=== PATIENT | male | born 1945 | race Caucasian/White ===

== ENCOUNTER 2019-09-09 16:30 | Outpatient (RCR) | payer MEDICARE, OTHER, SELFPAY ==
[2019-06-11 09:54] VITALS: PULSE 72
== END 2019-09-09 23:59 | disposition home or self-care (01) ==
LOC: ANHCPREHAB 16:30
PROVIDERS: PCP Family Medicine; Visit Provider Nurse Practitioner Adult Health
DX: I50.89 Other heart failure (principal)
CPT/HCPCS: 93798

== ENCOUNTER 2019-09-19 16:30 | Outpatient (RCR) | payer MEDICARE, OTHER, SELFPAY ==
[2019-09-10 00:07] VITALS: PULSE 72
== END 2019-09-19 18:43 | disposition home or self-care (01) ==
LOC: ANHCPREHAB 16:30
PROVIDERS: PCP Family Medicine; Visit Provider Nurse Practitioner Adult Health
DX: I50.89 Other heart failure (principal)
CPT/HCPCS: 93798

== ENCOUNTER 2020-09-12 09:10 | Outpatient (CLI) | payer MEDICARE, OTHER, SELFPAY ==
--- NOTE | ~2020-09-12 | CT_ITS ---
EXAMINATION: CT abdomen pelvis w con INDICATION: Unspecified abdominal pain TECHNIQUE: Computed tomographic images of the abdomen and pelvis were obtained after the administrati on of 100 cc of Omnipaque 350 intravenous contrast. The dose-length product (DLP) was 874.61 mGy-cm. Automated exposure control and iterative reconstruction technique were employed. COMPARISON: 10/20/2011 FINDINGS: Minimal dependent atelectasis is present in the lung bases. The heart size is normal. Cysts of the liver measure up to 1.9 cm. The spleen, pancreas, and adrenal glands are normal. The gallblad osmar is surgically absent. Cysts of the kidneys measure up to 2.8 cm on the left. There are large james pelvic cysts on the left. A 1.3 cm intermediate attenuation exophytic lesion is present in the left k idney lower pole on image 78 which is essentially unchanged in size since the 2012 comparison, likely reflecting a proteinaceous cyst. No pathologically enlarged abdominal or pelvic lymph nodes are iden tified. There is calcified atherosclerosis of the aorta and many of the other arteries. There is no f ree intraperitoneal gas or evidence of bowel obstruction. Colonic diverticulosis is present without e vidence of diverticulitis. There are fat-containing inguinal hernias. There is moderate lumbar spondy losis. IMPRESSION: 1. Bilateral inguinal hernias containing fat. 2. Diverticulosis without evidence of diverticulitis. Reviewed, dictated and finalized at location A. [employer]
[2020-09-12 09:54] LABS: Estimated Glomerular Filt Rate > 60
== END 2020-09-12 09:11 | disposition home or self-care (01) ==
PROVIDERS: PCP Family Medicine; Visit Provider Family Medicine
DX: R10.9 Unspecified abdominal pain (principal); K40.20 Bilateral inguinal hernia, without obstruction or gangrene, not specified as recurrent; K57.90 Diverticulosis of intestine, part unspecified, without perforation or abscess without bleeding
CPT/HCPCS: 74177; Q9967

== ENCOUNTER 2022-02-14 13:35 | Emergency (ER) | payer MEDICARE, OTHER, SELFPAY ==
[2022-02-14 13:50] VITALS: BP 145/69; PULSE 65; RESP 18; TEMP 36.6; O2SAT 100
--- NOTE | 2022-02-14 14:20 | ED.URI ---
HPI - URI/Sore Throat General Chief Complaint: Upper Respiratory Infection Stated Complaint: cough Time Seen by Provider: 02/14/22 14:06 Source: patient Mode of arrival: ambulatory Limitations: no limitations History of Present Illness HPI Narrative: Patient presents today with a 2-day history of productive cough that is worse at night, nasal congestion, postnasal drip, sore throat at night. Denies fever shortness of breath. He has been using Flonase, antihistamine, and Singulair without much relief. Reports he gets bronchitis once a year. Related Data Home Medications Medication Instructions Recorded Confirmed aspirin 81 mg tablet,delayed 81 mg PO DAILY 06/11/19 02/14/22 release (Aspir-Low) glucosamine sulfate dipotassium Cl 2 tablet PO DAILY 06/11/19 02/14/22 500 mg-chondroitin 400 mg capsule (Glucosamine Sulfate 2 KCL-Chondroitin) multivit with minerals-iron 18 1 tablet PO DAILY 06/11/19 02/14/22 mg-folic ac 400 mcg-vit K 25 mcg tablet (Adults Multivitamin) sacubitril 49 mg-valsartan 51 mg 1 tablet PO BID 12/15/20 12/07/21 tablet (Entresto) fluticasone propionate 50 1 spray intranasal DAILY 02/14/22 02/14/22 mcg/actuation nasal spray,suspension sacubitril 49 mg-valsartan 51 mg 1 tablet PO BID 02/14/22 02/14/22 tablet (Entresto) Allergies Allergy/AdvReac Type Severity Reaction Status Date / Time metronidazole Allergy Mild Unknown Verified 02/14/22 13:55 Penicillins Allergy Mild Hives / Verified 02/14/22 13:55 Red Face Sulfa (Sulfonamide Allergy Mild Unknown Verified 02/14/22 13:55 Antibiotics) Review of Systems Review of Systems: CONSTITUTIONAL: Denies body aches, fever, chills, or sweats. EYES: Denies visual changes, redness, or discharge. ENT: Denies rhinorrhea, or otalgia.+ Sore throat, congestion CARDIOVASCULAR: Denies chest pain, palpitations, or edema. RESPIRATORY: Denies dyspnea.+ Cough GASTROINTESTINAL: Denies abdominal pain, nausea, vomiting, or diarrhea. GENITOURINARY: Denies dysuria or hematuria. SKIN: Denies rash, itching, or wounds. MUSCULOSKELETAL: Denies back pain, joint pain, or myalgia. NEUROLOGIC: Denies headache, numbness, tingling, or weakness. PSYCH: Denies depression or anxiety. [facility] Past Medical History Medical History Cardiomyopathy Cyst of kidney, acquired Diverticulosis of colon (without mention of hemorrhage) LBBB (left bundle branch block) Myocardial infarction, anteroseptal Other obesity due to excess calories Urge incontinence Viral cardiomyopathy Surgical History Surgical History Hx of cholecystectomy Family History Family History Father Family history of cardiovascular disease, Onset Age: 82 Mother Family history of cardiovascular disease Social History Social History Smoking packs per day: 0.5 Smoking cigarettes per day: 10.0 Years smoked: 8 Smoking pack-years: 4.00 Smoking status: Never smoker Tobacco type: cigarettes Second hand tobacco smoke exposure: No Alcohol intake: never Comments At time of signature, I have reviewed and agree with nursing past medical, surgical, social and family history unless otherwise noted. Please see nursing chart for further information. There is no relevant family history pertinent to the presenting complaint Exam Narrative: GENERAL: Well-appearing, well-nourished, and in no acute distress. HEAD: Normocephalic, atraumatic. EYES: EOMI. No redness or drainage. Conjunctivae normal. ENT: Mucous membranes pink and moist. Nares clear. No rhinorrhea. TMs normal bilaterally. Throat normal. Uvula midline. NECK: Normal AROM. Supple. No lymphadenopathy. CHEST: No respiratory distress. Clear to auscultation. HEART: Re
== END 2022-02-14 14:41 | disposition home or self-care (01) ==
PROVIDERS: Emergency Provider Nurse Practitioner; PCP Physician Assistant
DX: J06.9 Acute upper respiratory infection, unspecified (principal); J40 Bronchitis, not specified as acute or chronic; F17.210 Nicotine dependence, cigarettes, uncomplicated; I42.9 Cardiomyopathy, unspecified; I25.2 Old myocardial infarction; Z79.01 Long term (current) use of anticoagulants
CPT/HCPCS: 99213; G0463

== ENCOUNTER 2022-02-23 15:26 | Outpatient (CLI) | payer MEDICARE, OTHER, SELFPAY ==
--- NOTE | ~2022-02-23 | XR_ITS ---
EXAMINATION: XR chest 2V 02/23/2022 15:45 INDICATION: Bronchitis PROCEDURE: 2 view chest COMPARISON: Comparison to multiple prior studies sequentially, with oldest reviewed study dated 04/24. FINDINGS: The lungs are clear. The cardiomediastinal silhouette is within normal limits. There are no pleural effusions. There is no pneumothorax suspected. IMPRESSION: 1: NO ACUTE CARDIOPULMONARY DISEASE. Reviewed, dictated and finalized at location A.
== END 2022-02-23 15:27 | disposition home or self-care (01) ==
LOC: ANHIMG 15:29
PROVIDERS: PCP Physician Assistant; Visit Provider Physician Assistant
DX: R05.9 Cough, unspecified (principal)
CPT/HCPCS: 71046

== ENCOUNTER 2022-03-11 11:04 | Emergency (ER) | payer MEDICARE, OTHER, SELFPAY ==
--- NOTE | ~2022-03-11 | XR_ITS ---
EXAMINATION: XR chest 2V 03/11/2022 11:28 INDICATION: Cough PROCEDURE: 2 view chest COMPARISON: Comparison to multiple prior studies sequentially, with oldest reviewed study dated 01/2009. FINDINGS: The lungs are clear. The cardiomediastinal silhouette is within normal limits. There are no pleural effusions. There is no pneumothorax suspected. IMPRESSION: 1: NO ACUTE CARDIOPULMONARY DISEASE. Reviewed, dictated and finalized at location B.
[2022-03-11 11:13] VITALS: BP 161/80; PULSE 81; RESP 16; TEMP 36.6; O2SAT 98
--- NOTE | 2022-03-11 11:15 | ED.URI ---
HPI - URI/Sore Throat General Chief Complaint: Upper Respiratory Infection Stated Complaint: COUGH/CONGESTION Time Seen by Provider: 03/11/22 11:20 Source: patient Mode of arrival: ambulatory Limitations: no limitations History of Present Illness HPI Narrative: Mr. Rodriguez is a 76-year-old male patient presenting to the clinic today with complaints of a cough, chest congestion, and head congestion. He reports that he is bringing up some yellow phlegm when he coughs. He reports that he had the same episode approximately 3 weeks ago and was seen and was given a steroid and a Z-Jose Martin and that cleared him up however the last 4 days he developed the symptoms. He denies any fever or chills. He denies any known COVID exposure. States he gets this every year due to allergies/seasonal. He is a non-smoker. Reports he is going on a cruise next week. MD elicited complaint: sore throat and nasal congestion Related Data Home Medications Medication Instructions Recorded Confirmed aspirin 81 mg tablet,delayed 81 mg PO DAILY 06/11/19 02/14/22 release (Aspir-Low) glucosamine sulfate dipotassium Cl 2 tablet PO DAILY 06/11/19 02/14/22 500 mg-chondroitin 400 mg capsule (Glucosamine Sulfate 2 KCL-Chondroitin) multivit with minerals-iron 18 1 tablet PO DAILY 06/11/19 02/14/22 mg-folic ac 400 mcg-vit K 25 mcg tablet (Adults Multivitamin) sacubitril 49 mg-valsartan 51 mg 1 tablet PO BID 12/15/20 12/07/21 tablet (Entresto) fluticasone propionate 50 1 spray intranasal DAILY 02/14/22 02/14/22 mcg/actuation nasal spray,suspension sacubitril 49 mg-valsartan 51 mg 1 tablet PO BID 02/14/22 02/14/22 tablet (Entresto) Allergies Allergy/AdvReac Type Severity Reaction Status Date / Time metronidazole Allergy Mild Unknown Verified 02/14/22 13:55 Penicillins Allergy Mild Hives / Verified 02/14/22 13:55 Red Face Sulfa (Sulfonamide Allergy Mild Unknown Verified 02/14/22 13:55 Antibiotics) Review of Systems Review of Systems: Pertinent positives per HPI. Patient denies any fever, chills, rash, headache, visual changes, dizziness, shortness of breath, chest pain, palpitations, nausea, vomiting, diarrhea, constipation, abdominal pain, or any urinary issues. [facility] Past Medical History Medical History Cardiomyopathy Cyst of kidney, acquired Diverticulosis of colon (without mention of hemorrhage) LBBB (left bundle branch block) Myocardial infarction, anteroseptal Other obesity due to excess calories Urge incontinence Viral cardiomyopathy Surgical History Surgical History Hx of cholecystectomy Family History Family History Father Family history of cardiovascular disease, Onset Age: 82 Mother Family history of cardiovascular disease Social History Social History Smoking packs per day: 0.5 Smoking cigarettes per day: 10.0 Years smoked: 8 Smoking pack-years: 4.00 Smoking status: Never smoker Tobacco type: cigarettes Second hand tobacco smoke exposure: No Alcohol intake: never Comments At the time of my signature, I reviewed and agree with the nursing past medical, surgical, social, and family history. There is no relevant family history pertinent to the patient complaint. Exam Narrative: General: Well-developed, overweight, in no apparent distress Head: Normocephalic, atraumatic Eyes: Pupils equally round and reactive to light bilaterally, EOM intact, sclera and conjunctive clear, no discharge, lids normal Ears: TMs intact and clear, ear canals clear, no drainage, grossly hearing normal. Nose: Nares patent, no discharge, no inflammation, no sinus tenderness. Mouth: Oral pharynx without lesions or masses, good dentition, MMM. Neck:
== END 2022-03-11 12:09 | disposition home or self-care (01) ==
PROVIDERS: Emergency Provider Nurse Practitioner Family; PCP Physician Assistant
DX: J40 Bronchitis, not specified as acute or chronic (principal); I42.9 Cardiomyopathy, unspecified; I25.2 Old myocardial infarction; E66.8 Other obesity; Z68.30 Body mass index [BMI] 30.0-30.9, adult
CPT/HCPCS: 71046; 99213; G0463

== ENCOUNTER 2022-10-20 14:41 | Emergency (ER) | payer MEDICARE, OTHER, SELFPAY ==
[2022-10-20 14:54] VITALS: BP 151/82; PULSE 66; RESP 16; TEMP 36.1; O2SAT 99
--- NOTE | 2022-10-20 15:08 | ED.SKABFB ---
HPI - Skin/Abscess/Foreign Bdy General Chief complaint: Skin/Abscess/Foreign Body Stated complaint: INFECTED INGROWN TOENAIL Source: patient and RN notes reviewed History of Present Illness HPI narrative: 77 yo M presents to urgent care with complaints of an ingrown toenail. Pt presents with right big toenail tender to the medial side and slightly edematous and erythematous. Pt states he noticed drainage from the toenail when he applied pressure to the nail. Denies any other symptoms including fevers or chills. Related Data Home Medications Medication Instructions Recorded Confirmed aspirin 81 mg tablet,delayed 81 mg PO DAILY 06/11/19 10/20/22 release (Aspir-Low) glucosamine sulfate dipotassium Cl 2 tablet PO DAILY 06/11/19 10/20/22 500 mg-chondroitin 400 mg capsule (Glucosamine Sulfate 2 KCL-Chondroitin) multivit with minerals-iron 18 1 tablet PO DAILY 06/11/19 10/20/22 mg-folic ac 400 mcg-vit K 25 mcg tablet (Adults Multivitamin) fluticasone propionate 50 1 spray intranasal DAILY 02/14/22 10/20/22 mcg/actuation nasal spray,suspension sacubitril 49 mg-valsartan 51 mg 1 tablet PO BID 02/14/22 10/20/22 tablet (Entresto) Allergies Allergy/AdvReac Type Severity Reaction Status Date / Time metronidazole Allergy Mild Unknown Verified 10/20/22 14:52 Penicillins Allergy Mild Hives / Verified 10/20/22 14:52 Red Face Sulfa (Sulfonamide Allergy Mild Unknown Verified 10/20/22 14:52 Antibiotics) Review of Systems Review of Systems: CONSTITUTIONAL: Denies fever, chills, or sweats. EYES: Denies visual changes, redness, or discharge. ENT: Denies otalgia and sore throat CARDIOVASCULAR: Denies chest pain, palpitations, or edema. RESPIRATORY: Denies cough or dyspnea. GASTROINTESTINAL: Denies abdominal pain, nausea, vomiting, or diarrhea. GENITOURINARY: Denies dysuria or hematuria. SKIN: Right big toenail pain and swelling. MUSCULOSKELETAL: Denies back pain, joint pain, or myalgia. NEUROLOGIC: Denies headache, numbness, or weakness. Pertinent positives per HPI. [facility] Past Medical History Medical History Cardiomyopathy Cyst of kidney, acquired Diverticulosis of colon (without mention of hemorrhage) LBBB (left bundle branch block) Myocardial infarction, anteroseptal Other obesity due to excess calories Urge incontinence Viral cardiomyopathy Surgical History Surgical History Hx of cholecystectomy Family History Family History Father Family history of cardiovascular disease, Onset Age: 82 Mother Family history of cardiovascular disease Social History Social History Smoking packs per day: 0.5 Smoking cigarettes per day: 10.0 Years smoked: 8 Smoking pack-years: 4.00 Smoking status: Former smoker Tobacco type: cigarettes Second hand tobacco smoke exposure: No Alcohol intake: never Comments At the time of my signature, I reviewed and agree with the nursing past medical, surgical, social, and family history. There is no relevant family history pertinent to the patient complaint. Exam Narrative: GENERAL: This is a well-nourished, well-developed patient, in no apparent distress. HEAD: normocephalic, atraumatic. EYES: Sclera clear/white. Vision is grossly intact. EARS: External ears normal, auditory canals clear and without drainage. Hearing grossly intact. NECK: Neck supple, non-tender without lymphadenopathy, masses or thyromegaly. CARDIOVASCULAR: Regular rate. RESPIRATORY: No respiratory distress. GASTROINTESTINAL: Abdomen soft, non-tender, nondistended. Bowel sounds are active. No hepato-splenomegaly, or palpable masses. No guarding. SKIN: Right big toenail, slightly ingrown on the medial side. MIld swelling and erythema to the side.
== END 2022-10-20 15:22 | disposition home or self-care (01) ==
PROVIDERS: Emergency Provider Nurse Practitioner Family; PCP Emergency Medicine
DX: L60.0 Ingrowing nail (principal); Z87.891 Personal history of nicotine dependence; I25.2 Old myocardial infarction; I42.9 Cardiomyopathy, unspecified; Z79.82 Long term (current) use of aspirin
CPT/HCPCS: 99211; G0463

== ENCOUNTER 2023-04-25 09:45 | Outpatient (RCR) | payer MEDICARE, OTHER, SELFPAY ==
--- NOTE | 2023-03-01 12:30 | OPREHPOC ---
Outpatient Therapy Plan of Care This is a Multidisciplinary Plan of Care that may contain components documented by all disciplines (PT, OT, and ST.) PT Problem 1 PT Problem #1 Knowledge Deficit PT Goal 1 Goal Independent with HEP Target Visit 8 PT Problem 2 PT Problem #2 Pain PT Goal 1 Goal decrease pain in the RLE to no more than 3/10. Target Visit 8 PT Problem 3 PT Problem #3 Impaired Flexibility PT Goal 1 Goal -25 R hamstring Target Visit 8 PT Problem 4 PT Problem #4 Impaired Range of Motion PT Goal 1 Goal 125 degrees R knee flexion Target Visit 8 PT Problem 5 PT Problem #5 Impaired Strength PT Goal 1 Goal R VMO strength to 4/5 Target Visit 8
--- NOTE | 2023-03-01 12:30 | PTOPEVAL1 ---
Assessment and note entered by Keith Corey, PT Evaluation Information Diagnosis DARRION OA of the knees Subjective Information Patient reports that he has been having pain in his knee for over 8 years with an injection 8 years ago that lasted eight years and this year he has had two injections that have not helped in his opinion. Patient saw Dr. Gonzalez and has also had a second opinion from a different surgeon that thinks it is from the hip and has given him an injection into his hip yesterday. The patient does use ice and Voltaren to help with the pain. Reports no buckling in his knee or hip and some radiating pain from the knee going down into the bell. Reported Pain Level Pain Score 4: Self Report Assessment PT Clinical Summary Shailesh is a 77 year old male coming into the clinic with a diagnosis of OA of R knee. Patient has tightness in the R hamstring along with decreased flexion and weak VMO. Physical therapy will work on stretching and strengthening of the RLE along with modalities and manual therapy as needed for pain control. Plan of Care Interventions Electrical Stimulation,Gait Training,Hot Pack/Cold Pack,Manual Therapy,Neuro Re-education,Patient/ Caregiver Education,Therapeutic Activities, Therapeutic Exercise,Ultrasound PT Services Indicated Yes Treatment Frequency and 1-2x/wk for 8 visits Duration These treatments will address the objective and functional deficits as defined above. The patient will be advanced safely and appropriately in order for the patient to progress towards his/her prior level of function. Additional exercises will be introduced and as well as a comprehensive home exercise program upon discharge, if needed, ?to ensure carryover of functional gains achieved in the clinic. This treatment plan has been reviewed and agreement upon by the patient.
--- NOTE | 2023-03-30 13:53 | OPREHPOC ---
Outpatient Therapy Plan of Care This is a Multidisciplinary Plan of Care that may contain components documented by all disciplines (PT, OT, and ST.) PT Problem 1 PT Problem #1 Knowledge Deficit PT Goal 1 Goal Independent with HEP Target Visit 8 PT Problem 2 PT Problem #2 Pain PT Goal 1 Goal Decrease pain in the RLE to no more than 3/10. Target Visit 16 Progress Partially Met Comment Progressing but pain still significant when standing greater than 5 minutes PT Problem 3 PT Problem #3 Impaired Flexibility PT Goal 1 Goal -25 R hamstring Target Visit 8 Progress Met PT Goal 2 Goal Demonstrate 10+ degrees of hip extension to achieve terminal stance through hip flexor extensibility. Target Visit 16 PT Problem 4 PT Problem #4 Impaired Range of Motion PT Goal 1 Goal 125 degrees R knee flexion Target Visit 8 Progress Met PT Goal 2 Goal Patient will achieve 40 degrees of jorge hip abduction ROM to reduce functional acetabular compression Target Visit 16 PT Problem 5 PT Problem #5 Impaired Strength PT Goal 1 Goal R VMO strength to 4/5 Target Visit 8 Progress Met PT Goal 2 Goal Patient will demonstrate ability to perform 10 minutes of standing hip activity without increased pain for ADL performance Target Visit 16
--- NOTE | 2023-03-30 14:03 | PTOPPROG ---
Assessment and note entered by Holger Velasquez, PT Evaluation Information Assessment Status Progress Diagnosis DARRION OA of the knees Onset 8 years Subjective Information Patient reports that therapy has really helped at this point. Feels he is walking better and having less pain. Follows up with MD tomorrow. He is happy with progress but still feels he has room for improvement. He would like to get his knee straighter and improve his ability to stand and work for longer periods. Would like to continue therapy to continue to address deficits. Assessment PT Clinical Summary Patient has made excellent progress in knee ROM, Gait, and pain to this point. He continues to show mobility deficits which were mostly noted in R hip gross mobility and is likely compounding on knee pain and functional deconditioning with walking and standing activity. He will continue to benefit from skilled therapy to address these deficits for rn long term care progress improvement. Plan of Care Interventions Electrical Stimulation,Gait Training,Hot Pack/Cold Pack,Manual Therapy,Neuro Re-education,Patient/ Caregiver Educati,Therapeutic Activities, Therapeutic Exercise,Ultrasound PT Services Indicated Yes Treatment Frequency and 2x/week for 4 weeks Duration These treatments will address the objective and functional deficits as defined above. The patient will be advanced safely and appropriately in order for the patient to progress towards his/her prior level of function. Additional exercises will be introduced and as well as a comprehensive home exercise program upon discharge, if needed, ?to ensure carryover of functional gains achieved in the clinic. This treatment plan has been reviewed and agreement upon by the patient.
--- NOTE | 2023-04-25 13:31 | PTOPDC ---
Assessment and note entered by Emy Chung, PT Evaluation Information Assessment Status Discharge Diagnosis DARRION OA of the knees Onset 8 years Subjective Information is able to do everything without any problems; is doing all the exercises at home; wants to be finished up with therapy. Reported Pain Level Pain Score 0: Self Report Pain Score 0: Self Report Assessment PT Clinical Summary Obdulio has received 14 PT sessions. Compared to the last progress report: pain has decreased to 0/10; strength of hip and knee has increased; activity tolerance improved and indep with HEP. The goals were achieved. Discharge PT services. Plan of Care PT Services Indicated No
== END 2023-04-28 16:11 | disposition home or self-care (01) ==
LOC: ANHPT 09:45
PROVIDERS: PCP Emergency Medicine; Visit Provider Nurse Practitioner Family
DX: M17.0 Bilateral primary osteoarthritis of knee (principal)
CPT/HCPCS: 97110; 97112; 97161; 97530; 99199

== ENCOUNTER 2023-11-24 14:20 | Outpatient (CLI) | payer MEDICARE, OTHER, SELFPAY ==
--- NOTE | ~2023-11-24 | XR_ITS ---
XR lumbar spine min 4V DATE: 11/24/2023 14:44 INDICATION: Spondylolisthesis without myelopathy or radiculopathy TECHNIQUE: AP, lateral, coned lateral lumbosacral and bilateral oblique views COMPARISON: None FINDINGS: There is mild levoscoliosis of the thoracolumbar spine. There is a transitional lumbosacral vertebra with lumbarization on the left, sacralization on the rig ht. Mild degenerative disease at L1-2. There is moderately severe degenerative disc disease at L2-3, L3-4 and L5-S1 and moderate degenerativ e disc disease at L4-5. There is prominent degenerative change at the apophyseal joints in the lower lumbar and lumbosacral a juanito but no spondylolisthesis. No spondylolysis is evident. Included lower thoracic and lumbar pedicles are intact. The sacroiliac joints are intact. IMPRESSION: Moderately prominent lumbar spondylosis Transitional first sacral vertebra Reviewed, dictated and finalized at location A.
== END 2023-11-24 14:21 ==
LOC: GOSHIMG 14:22
PROVIDERS: PCP Emergency Medicine; Visit Provider Emergency Medicine
DX: M47.816 Spondylosis without myelopathy or radiculopathy, lumbar region (principal)
CPT/HCPCS: 72110

== ENCOUNTER 2023-11-27 14:38 | Outpatient (CLI) | payer MEDICARE, OTHER, SELFPAY ==
--- NOTE | ~2023-11-27 | US_ITS ---
Testicular ultrasound with doppler. Indication: Right testicular swelling. Technique: Real-time sonography the scrotum was performed. Color flow Doppler and Doppler spectral an alysis were performed. Findings: There is ectasia of the right rete testis. The testes are otherwise homogeneous in echotext ure bilaterally. There is no evidence of an intratesticular mass. The right testis measures 3.3 x 2.9 x 3.1 cm and the left 3.0 x 2.1 x 2.6 cm. There is color-flow seen to both testes. Arterial and veno us spectral waveforms are seen in both testes. There is no sonographic evidence of torsion. 6 mm left epididymal head cyst or spermatocele present.. Large right hydrocele present. Borderline left varico deysi present. Impression: Large right hydrocele. 6 mm left epididymal head cyst or spermatocele. No significant abnormality of the testes themselves. Borderline left varicocele. Reviewed, dictated and finalized at [facility]. Impression: Large right hydrocele. 6 mm left epididymal head cyst or spermatocele. No significant abnormality of the testes themselves. Borderline left varicocele.
== END 2023-11-27 14:39 ==
LOC: GOSHIMG 14:38
PROVIDERS: PCP Emergency Medicine; Visit Provider Emergency Medicine
DX: N50.89 Other specified disorders of the male genital organs (principal); N43.3 Hydrocele, unspecified
CPT/HCPCS: 76870; 93976

== ENCOUNTER 2024-02-26 10:45 | Outpatient (RCR) | payer MEDICARE, OTHER, SELFPAY ==
--- NOTE | 2023-12-28 10:01 | OPREHPOC ---
Outpatient Therapy Plan of Care This is a Multidisciplinary Plan of Care that may contain components documented by all disciplines (PT, OT, and ST.) PT Problem 1 PT Problem #1 Knowledge Deficit PT Goal 1 Goal *indep with HEP Target Visit 8 PT Problem 2 PT Problem #2 Pain PT Goal 1 Goal 1* pt report pain at worst of 5/10 in back 2* Oswestry self assessment rating of 20% limitation in activity 3* pt report walking/standing tolerance of 20 minutes Target Visit 8 PT Problem 3 PT Problem #3 Impaired Flexibility PT Goal 1 Goal improve hip flexibility R and L, for balance and position of trunk/hips: hamstring length with supine SLR 1* R 60' 2* L 60' anterior hip-quad length with prone knee flexion 2* R 125' 3* L 125' piriformis length with supine stretch to mid line of body 4* R 5* L Target Visit 8 PT Problem 4 PT Problem #4 Impaired Strength PT Goal 1 Goal increase strength of hip extension to improve position of trunk and hips prone hip extension x 20 reps 1* R 2* L 3* pt stand with upright/ neutral trunk 4* 2 mintue walking test distance of 450' Target Visit 8
--- NOTE | 2023-12-28 10:01 | PTOPEVAL1 ---
Assessment and note entered by Emy Chung, PT Evaluation Information Assessment Status Evaluation Diagnosis radicular lumbar pain Onset September 2023 Subjective Information gradual increase in chronic back pain; had hip injections on R and L- help some; to have R THR In Mar. recent x ray of hips and knees-- arthritis; previous PT for hip pain, knee pain--leg strengthening; Activity: working--standing, walking, own PEER's; difficulty walking any distances; have not been doing any exercises for fitness; Reported Pain Level Pain Score 4: Self Report Additional Pain Score Comments pain range in the past week 3-8/10; burning in R knee intermittent; also pain and arthritis in both hips and R knee; increase pain with standing/walking 10 minutes decrease pain: sit/rest pain meds over the counter PRN; have not used heat/ice - instruct on PRN use when first get up in AM, is OK; sleeping is OK Assessment PT Clinical Summary Mr. Mccrary has the diagnosis of lumbar radiculopathy. He had recent R and L hip injections, which have helped his pain. And he is planning to have R THR in March. He is active and reported decreased standing and walking tolerance due to pain. Also has R and L hip and R knee pain-- arthritis. Self assessment Oswestry rating of 28% limitation in activity level. With the evaluation: standing trunk extension increases his pain; decrease strength over hip extension muscles; decreased flexibility of anterior hip-quad, hamstring and piriformis muscle groups. Skilled PT services are indicated for modalities PRN for pain; therapeutic exercises to increase hip strength and flexibility, to improve position and posture of spine with education for HEP and posture/body mechanics. Plan of Care Interventions Electrical Stimulation,Hot Pack/Cold Pack,Manual Therapy,Mechanical Traction,Neuro Re-education, P
--- NOTE | 2023-12-28 10:15 | PCPTNOTE ---
during the evaluation today, pt reports he will be out of town the last week of December.
--- NOTE | 2024-01-09 14:05 | PCPTNOTE ---
Patient cancelled, going out of town
--- NOTE | 2024-02-01 14:21 | PCPTNOTE ---
pt did not show for today's reevaluation appt. I called him, stated he did not have the appt on his calendar. Wants to continue with more therapy. Informed him he will have to schedule a reeval appt. Transferred to motel front desk attendant, line was busy, so he will call later to schedule.
--- NOTE | 2024-02-26 15:13 | OPREHPOC ---
Outpatient Therapy Plan of Care This is a Multidisciplinary Plan of Care that may contain components documented by all disciplines (PT, OT, and ST.) PT Problem 1 PT Problem #1 Knowledge Deficit PT Goal 1 Goal *indep with HEP Target Visit 8 Progress Met PT Problem 2 PT Problem #2 Pain PT Goal 1 Goal 1* pt report pain at worst of 5/10 in back 2* Oswestry self assessment rating of 20% limitation in activity 3* pt report walking/standing tolerance of 20 minutes Target Visit 8 Progress Met PT Problem 3 PT Problem #3 Impaired Flexibility PT Goal 1 Goal improve hip flexibility R and L, for balance and position of trunk/hips: hamstring length with supine SLR 1* R 60' 2* L 60' anterior hip-quad length with prone knee flexion 2* R 125' 3* L 125' piriformis length with supine stretch to mid line of body 4* R 5* L Target Visit 8 Progress Met PT Problem 4 PT Problem #4 Impaired Strength PT Goal 1 Goal increase strength of hip extension to improve position of trunk and hips prone hip extension x 20 reps 1* R 2* L 3* pt stand with upright/ neutral trunk 4* 2 mintue walking test distance of 450' Target Visit 8 Progress Met
--- NOTE | 2024-02-26 15:13 | PTOPDC ---
Assessment and note entered by Holger Velasquez, PT Evaluation Information Assessment Status Progress Diagnosis radicular lumbar pain Onset September 2023 Subjective Information Reports that overall he is a bit better. Moved his TH up to the end of February and feel she will be able to make it through until then and has a good understanding of exercises. Reported Pain Level Pain Score 2: Self Report Assessment PT Clinical Summary Patient showing some strength and mobility improvement at this time. Patient is squared away for a AISHA at the end of the month and will continue to work on strength and ROM to maximize outcome. Plan of Care PT Services Indicated Yes
== END 2024-02-26 17:35 | disposition home or self-care (01) ==
LOC: ANHPT 10:45
PROVIDERS: PCP Emergency Medicine; Visit Provider Emergency Medicine
DX: M47.816 Spondylosis without myelopathy or radiculopathy, lumbar region (principal)
CPT/HCPCS: 97110; 97140; 97161; 97530

== ENCOUNTER 2025-04-23 13:54 | Outpatient (CLI) | payer MEDICARE, OTHER, SELFPAY ==
--- OUTSIDE RECORDS SUMMARY | 2006-07-31 08:32 | XMS_ITS | Continuity of Care Document ---
Author Organization [facility] Address [address] [place] [address] [place] [address] Phone Care Team Providers Care Personnel Research Psychologist Name Role Phone Rola Moran MD Unavailable Unavailable Procedures Procedure Date Office/outpatient Visit, Est Remove Foreign Body From Eye Office Consultation Advance Directives Directive Yes / No Effective Date File Name No Information Encounters Encounter Description Practice Location Reason(s) For Visit Diagnoses Date Provider Providers Copied on Encounter Office/outpat ient Visit, Est [facility], [address] [place] [address] [address], [place], [place], [id number], tel:[phone] SEC Holland MD Professional No Information 7 Luisa Canela. [address] [facility] [place] [place], [address], [place]. tel:[phone] Referring Provider: Aba López, [address] [place], [address]. tel:[phone] Office Consultation [facility], [address] [place] [address] [address], [place], [place], [id number], tel:[phone] SEC Holland MD Professional No Information 7 Luisa Canela. [address] [facility] [place] [place], [address], . tel:[phone] Referring Provider: Aba López, [address] [place], [address]. tel:[phone] Family History Family Member Type Diagnosis Age At Onset No Information Payers Payer name Insurance type Covered republican ID Authoriza tion(s) No Information Social History Type Description Quantity Date Captured Comments Sex Male Smoking Status No Information Chief Complaint And Reason For Visit No Information Reason For Referral Reason For Referral No Information History Of Present Illness Encounter Date Complaint History Of Prese nt Illness No Information Functional Status Date Functional Assessmen t No Information Instructions Date Instruction Additional Infor mation No Information Assessments Type Assessment Date No Information Patient Care Teams Name Effective Dates (start - stop) Status Members No Information
--- NOTE | ~2025-04-23 | CT_ITS ---
EXAMINATION: CT abdomen pelvis w con DATE: 04/23/2025 14:26 INDICATION: Abdominal pain TECHNIQUE: Computed tomography (CT) of the abdomen and pelvis was performed with 100 mL Omnipaque-350 intravenous contrast. Automated exposure control and iterative reconstruction technique were employed. The dose-length product was 1112.56 mGy-cm. COMPARISON: 09/12/2020 FINDINGS: Linear discoid atelectasis/scarring at the bilateral lower lungs. Heart size is normal. No pericardial or pleural effusion. Multiple scattered hepatic cysts the largest measuring up to 1.1 cm. Status post cholecystectomy. Spleen, pancreas and bilateral adrenal glands are normal. There are few tiny cysts at the right kidney with significantly larger cysts in the left kidney measuring up to 8.1 cm. There is prominent diverticulosis along the sigmoid anterolisthesis of the descending colon without adjacent inflammatory change to suggest diverticulitis. Small bowel and appendix are normal. 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 Small left and moderate-sized right fat-containing inguinal hernias. No free intraperitoneal gas or fluid. No pathologically enlarged abdominal or pelvic lymphadenopathy. Scattered nonhemodynamically significant calcified atheros clerosis of the normal caliber abdominal aorta and many of the other arteries. Mild thoracolumbar levocurvature with severe spondylosis. IMPRESSION: 1. No acute intra-abdominal/pelvic process. 2. Prominent descending and sigmoid colon predominant diverticulosis. 3. Small left and moderate-sized right fat-containing inguinal hernias. Reviewed, dictated and finalized at location A.
--- OUTSIDE RECORDS SUMMARY | 2025-04-23 14:02 | XMS_ITS | Encounter Summary ---
Author Organization [facility] Address [address] [place] [address] Care Team Providers Care Floral Clerk Name Role Phone Chente Mata MD Primary Care Provider [phone] Sky Ahn MD Unavailable [phone] Luda Galvan NP Primary Care Provider [phone] Encounter Details Date Type Department Care Team (Late st Contact Info) Description 04/03/2024 Tiempy Message Enc [facility] - [place] [address] [place], [place] [id number] [phone] Jose M Hardwick PA [address] [place] [address] Stationary Biike Social History Tobacco Use Types Packs/Day Years Used Date Smoking Tobacco: Former Cigarettes Passive Smoke Exposure: Never Smokeless Tobacco: Never Comments:not smoked since Alcohol Use Standard Drinks/Week Comments Never 0 (1 standard drink = 0.6 oz pur e alcohol) OASIS D0700: Social Isolation Answer Da te Recorded Frequency of experiencing loneliness or isolatio n Never 03/28/2024 OASIS A1250: Transportation Answer Date Recorded Lack of Transportation (Medical) No 03/28/2024 Lack of Transportation (Non-Medical) No 03/28/2024 Patient Unable or Declines to Respond No 03/28/2024 OASIS B1300: Health Literacy Answer Devyn e Recorded Frequency of needing help to read materials from doctor or pharmacy Never 03/28/2024 PHQ-2 Answer Date Recorded Patient Health Questionnaire-2 Score 0 02/07/2024 Sex and Gender Information Value Date Recorded Sex Assigned at Male 09/23/2024 11:23 AM QUALITY IMPROVEMENT COORDINATOR Legal Sex Male 7:15 AM CDT Gender Identity Not on file Sexual Orientation Not on file documented as of this encounter Functional Status * Are you deaf or do you have serious difficulty hearing Answer Date of Assessment Author Status No 03/21/2024 12:16 PM CDT Emily See RN Active * Are you blind or do you have serious difficulty seeing, even when wearing glasses? Answer Date of Assessment Author Status No 03/21/2024 12:16 PM CDT Emily See RN Active * Do you have serious difficulty walking or climbing stairs? Answer Date of Assessment Author Status No 03/21/2024 12:16 PM CDT Emily See RN Active * Do you have difficulty dressing or bathing? Answer Date of Assessment Author Status No 03/21/2024 12:16 PM CDT Emily See RN Active * Because of a physical, mental, or emotional condition, do you have difficulty doing errands alone such as visiting a doctor's office or shopping? Answer Date of Assessment Author Status No 03/21/2024 12:16 PM TONEYT Emily See RN Active documented as of this encounter Mental Status * Because of a physical, mental, or emotional condition, do you have serious difficulty concentrating, remembering, or making decisions? Answer Entry Date Author Status No 03/21/2024 12:16 PM TONEYT Emily See RN Active documented in this encounter Plan of Treatment Not on file documented as of this encounter Visit Diagnoses Not on filedocumented in this encounter Care Teams Floral Clerk Relationship Specialty Start Date End Date Chente Mata MD [address] [place] [address] PCP - General EMERGENCY MEDICINE 05/08/23 09/22/24 Luda Galvan HEAT TREATMENT TECHNICIAN [address] [place] [address] PCP - General Nurse Practitioner Family 09/23/24 Sky Ahn MD [address] [address] CARDIOVASCULAR DISEASE 03/12/24 documented as of this encounter
--- OUTSIDE RECORDS SUMMARY | 2025-04-23 14:02 | XMS_ITS | Clinical Summary ---
Author Organization [facility] Address [address] [place] [address] Care Team Providers Care Regional Loss Prevention Manager Name Role Phone Sky Ahn MD Unavailable [phone] Luda Galvan NP Primary Care Provider [phone] Allergies Active Allergy Reactions Criticality Noted Date Comments Sulfamethoxazole-Trimethoprim Rash Low 2023 Dander Eyes Water & Itch 03/11/2024 Lisinopril Cough Low 05/06/2019 Metronidazole Hives 06/02/2017 Penicillins Anaphylaxis,Rash High 06/19/2008 Sulfa Antibiotics Hives High 06/02/2017 Medications albuterol sulfate HFA 108 (90 Base) MCG/ACT inhalerIndicatio ns:Bronchitis INHALE 1 PUFF EVERY 4 HOURS NEEDED FOR SHORTNESS OF BREATH OR WHEEZING 3 Active carvedilol (COREG) 25 MG tabletIndication s:Hypertension Take 1 tablet (25 mg total) by mouth 2 (two) times daily with meals. Indications: High Blood Pressure Once in the morning, once at night 3 Active cetirizine (ZYRTEC) 10 MG tabletIndication s:Allergy Take 1 tablet (10 mg total) by mouth daily. Indications: Allergy Active fluticasone propionate (FLONASE) 50 MCG/ACT nasal sprayIndications :Nasal Congestion 1 spray by Nasal route daily. Indications: Stuffy Nose Active glucosamine-ronnell droitin 500-400 MG CapIndications:F ungal Infection Take 1 capsule by mouth daily. Indications: Infection caused by Fungus Active montelukast (SINGULAIR) 10 MG tabletIndication s:Allergy Take 1 tablet (10 mg total) by mouth nightly at bedtime. Indications: Allergy Active pantoprazole EC (PROTONIX) 40 MG tabletIndication s:Stomach Discomfort Take 1 tablet (40 mg total) by mouth daily. Indications: Stomach Discomfort Active rosuvastatin (CRESTOR) 40 MG tabletIndication s:Hyperchloremia Take 1 tablet (40 mg total) by mouth nightly at bedtime. Indications: High Amount of Chloride in the Blood 3 Active ENTRESTO 97-103 MG tabletIndication s:Cardiac Instability Take 1 tablet by mouth 2 (two) times daily. Indications: Cardiac Instability 4 Active tamsulosin (FLOMAX) 0.4 MG CapIndications:U rinary Frequency Take 1 capsule (0.4 mg total) by mouth nightly. Indications: Frequent Urination 3 Active venlafaxine XR (EFFEXOR-XR) 75 MG 24 hr capsuleIndicatio ns:Depression Take 1.5 capsules by mouth nightly. Indications: Depression 3 Active Multiple Vitamin (MULTIVITAMIN ADULT OR)Indications:V itamin and/or Mineral Deficiency Take 1 capsule by mouth daily. Indications: Vitamin and/or Mineral Deficiency Active finasteride (PROSCAR) 5 MG tabletIndication s:Exacerbation of Urinary Frequency Take 1 tablet (5 mg total) by mouth nightly. Indications: Worsening of Frequent Urination 4 Active tiZANidine (ZANAFLEX) 4 MG tabletIndication s:Muscle Spasticity TAKE 1 TABLET BY MOUTH THREE TIMES A DAY NEEDED FOR MUSCLE SPASTICITY 4 Active spironolactone (ALDACTONE) 25 MG tablet Take 1 tablet (25 mg total) by mouth daily. 4 Active venlafaxine XR (EFFEXOR-XR) 37.5 MG 24 hr capsule TAKE 1 CAPSULE BY MOUTH DAILY - TAKE WITH THE 75MG CAPSULE TO EQUAL 112.5MG TOTAL DAILY. 4 Active Turmeric 450 MG Cap Take 1 tablet by mouth daily. Active guaiFENesin-code ine (GUAIFENESIN AC) 100-10 MG/5ML syrup TAKE 5 ML ORALLY EVERY 6 HOURS NEEDED FOR COUGH 5 Active Spacer/Aero-Hold ing Chambers (OPTICHAMBER PATRICIA) Misc GIVE PATIENT SPACER FOR STEROID INHALER Active Active Problems Problem Noted Date Diagnosed Date Status post total replacement of left hip 2024 Primary osteoarthritis of left hip 07/11/2024 Status post total replacement of right hip 03/21 Primary osteoarthritis of right hip 02/13/2024 Encounters Date Type Department Care Team Description 04/21/2025 Telephone [facility] Orthopedic & Sports Medicine [place] [address] [place] [address] Rene Andrade MD Called To Cancel Office Appt. 04/17/2025 Orders Only [facility] Orthopedic & Sports Medicine [facility] [address] [place] [address] Rene Andrade MD 04/16/2025 Telephone [facility] Orthopedic & Sports [facility] [address] [place] [address] Rene Andrade MD Information 01/28/2025 Telephone [facility]opedic & Sports Medicine [facility] [address] [place] [address] Rene Andrade MD Question from Last 3 Months Family History Medical History Relation Comments Arthritis Mother Depression Mother Heart Disease Mother Relation Status Comments Mother Social History Tobacco Use Types Packs/Day Years Used Date Smoking Tobacco: Former Cigarettes Passive Smoke Exposure: Never Smokeless Tobacco: Never Tobacco Cessation:Counseling Given: No Comments:not smoked since 1969 Alcohol Use Standard Drinks/Week Comments Never 0 [...] Date Recorded Patient Health Questionnaire-2 Score 0 09/25/2024 Sex and Gender Information Value Date Recorded Sex Assigned at Male 09/23/2024 11:23 AM INDUSTRIAL ENGINEERING Legal Sex Male 7:15 AM CDT Gender Identity Not on file Sexual Orientation Not on file Last Filed Vital Signs Vital Sign Reading Time Taken Comments Blood Pressure 99/53 11/25/2024 9:43 AM CDT Pulse 80 11/25/2024 9:43 AM CDT Temperature 36.2 C (97.1 F) 11/25/2024 9:43 AM CDT Respiratory Rate 18 10/16/2024 3:52 AM CDT Oxygen Saturation 98% 10/28/2024 10:33 AM CDT Inhaled Oxygen Concentration - - Weight 93.9 kg (207 lb) 11/25/2024 9:43 AM CDT Height 174 cm (5' 8.5) 11/25/2024 9:43 AM CDT Body Mass Index 31.02 11/25/2024 9:43 AM CDT Plan of Treatment Health Maintenance Due Date Last Done Comments DTaP, Tdap and Td Vaccines ( 1 - Tdap) 1966 Pneumococcal Vaccine: 50+ Years (1 of 1 - PCV) 1997 Annual Medicare Wellness Visit 2012 RSV Immunization or 60+ Years (1 - 1-dose 75+ series) 2022 COVID-19 Vaccine (3 - 2024-2 6 season) 2025 11/12/2020, 10/15/2020 Influenza Adult (#1) 2025 05/17/2024, 04/01/2019 Hepatitis C Completed 06/23/2008 Zoster Vaccines Completed 10/22/2022, 11/22/2021 PHQ-2 (Physician [place]) Completed 09/25/2024 Meningococcal B Vaccine Aged Out No l onger eligible based on patient's age to complete this topic Meningococcal Vaccine Aged Out No slade shannon eligible based on patient's age to complete this topic RSV Immunizations Under 20 Months Aged Out No longer eligible b ased on patient's age to complete this topic Goals Goal Patient Goal Type Associated Problems Recent Progress Patient-Stated? Author Autogenerat ed Goal Care Plan Autogenerated Problem No Maribel Sanches MA Medical Devices Implanted Type Area Head Mechanic Device Identifier Shelf Expiration Date Model / Serial / Lot Shell Acetabular Depuy 54mm - [id number] Implanted:Qt y: 1 on 03/21/2024 by Rene Andrade MD at [facility] Hip Components Right: Hip DEPUY [id number] 12/21/2033 [id number] / / [id number] Liner Depuy Acetabular Altrx Neut 36x54 - [id number] Implanted:Qt y: 1 on 03/21/2024 by Rene Andrade MD at [facility] Hip Components Right: Hip DEPUY [id number] 01/20/2029 [id number] / / [id number] Actis Duofix Femoral Stem Implanted:Qt y: 1 on 03/21/2024 by Rene Andrade MD at [facility] Hip Components Right: Hip DEPUY SYNTHES [id number] 12/21/2033 1010-05-30 0 / / [id number] Head Depuy Femoral Delta 36mm +5 - [id number] Implanted:Qt y: 1 on 03/21/2024 by Rene Andrade MD at [facility] Hip Components Right: Hip DEPUY [id number] 12/21/2028 [id number] / / [id number] Shell Acetabular Depuy 54mm - [id number] Implanted:Qt y: 1 on 10/15/2024 by Rene Andrade MD at [facility] Hip Components Left: Acetabulum DEPUY [id number] 07/23/2034 [id number] / / [id number] Liner Depuy Acetabular Altrx Neut 36x54 - [id number] Implanted:Qt y: 1 on 10/15/2024 by Rene Andrade MD at [facility] Hip Components Left: Acetabulum DEPUY [id number] 08/23/2029 [id number] / / [id number] Femoral Stem Implanted:Qt y: 1 on 10/15/2024 by Rene Andrade MD at [facility] Hip Components Left: Femur DEPUY SYNTHES [id number] 05/23/2034 1010-05-30 0 / / [id number] Head Depuy Femoral Delta 36mm +5 - [id number] Implanted:Qt y: 1 on 10/15/2024 by Rene Andrade MD at [facility] Hip Components Left: Femur DEPUY [id number] 08/23/2029 [id number] / / [id number] Additional Health Concerns Active Problems Noted Date Diagnosed Date Autogenerated Problem 01/15/2025 Insurance MEDICARE [facility] Advance Directives * Full Code (Latest Code Status on File) Date Activated Date Inactivated Comments 10/15/2024 3:08 PM 10/16/2024 12:51 PM * Full Code Date Activated Date Inactivated Comments 03/23/2024 3:50 PM 09/23/2024 11:27 AM * Full Code Date Activated Date Inactivated Comments 03/21/2024 12:08 PM 03/22/2024 12:44 PM Care Teams Regional Loss Prevention Manager Relationship Specialty Start Date End Date Luda Galvan, TRAILER DRIVER [address] [place] [address] PCP - General Nurse Practitioner Family 09/23/24 Sky Ahn MD [address] [place], [place] [id number] CARDIOVASCULAR DISEASE 03/12/24
--- OUTSIDE RECORDS SUMMARY | 2025-04-23 14:02 | XMS_ITS | Clinical Summary ---
Author Organization [facility] [address] Address [address] [place] [address] Care Team Providers Care Snout Puller Name Role Phone Luda Galvan NP Primary Care Provider [phone] Allergies Active Allergy Reactions Criticality Noted Date Comments Animal Dander Eye irritation Low 03/11/2024 Metronidazole Unknown 04/03/2019 Lisinopril Cough Low 05/06/2019 Penicillins Unknown,Anaphylaxis High 12/14/2018 Sulfa (Sulfonamide Antibiotics) Hives High 05/24 Sulfamethoxazole-Trimethoprim Rash Medium 2023 Medications aspirin (ADULT LOW DOSE ASPIRIN) 81 mg enteric coated tablet Take 1 tablet (81 mg total) by mouth daily [address] (PROTONIX) 40 mg EC tablet Take 1 tablet (40 mg total) by mouth daily 30 tablet 11 019 Active cetirizine (ZyrTEC) 10 mg tablet Take 1 tablet (10 mg total) by mouth daily Active montelukast (SINGULAIR) 10 mg tablet Take 1 tablet (10 mg total) by mouth nightly Active multivitamin capsule Take 1 capsule by mouth daily Two tablets daily Active glucosamine-chond roitin 500-400 mg tablet Take 1 tablet by mouth 3 (three) times a day Active fluticasone propionate (FLONASE) 50 mcg/actuation nasal spray Administer 1 spray into each nostril daily Active venlafaxine HCl (VENLAFAXINE ORAL) 101 mg 021 Active DICLOFENAC SODIUM ORAL Take 75 mg by mouth 2 (two) times a day as needed Active finasteride (PROSCAR) 5 mg tablet Take 1 tablet (5 mg total) by mouth nightly 024 Active carvediloL (COREG) 25 mg tabletIndications :Nonischemic cardiomyopathy (HCC) TAKE 1 TABLET BY MOUTH TWICE A DAY WITH MEALS 180 tablet 2 025 Active tamsulosin (FLOMAX) 0.4 mg extended release capsule 1 capsule (0.4 mg total) 2 (two) times a day Active rosuvastatin (CRESTOR) 40 mg tablet TAKE 1 TABLET BY MOUTH EVERY DAY AT NIGHT 90 tablet 3 025 Active spironolactone (ALDACTONE) 25 mg tablet TAKE 1 TABLET (25 MG TOTAL) BY MOUTH DAILY. 90 tablet 3 025 2025 Active furosemide (LASIX) 20 mg tablet Take 1 tablet (20 mg total) by mouth daily 90 tablet 2 025 Active sacubitriL-valsar pierce (ENTRESTO) 97-103 mg tabletIndications :chronic heart failure Take 1 tablet by mouth 2 (two) times a day 180 tablet 3 025 Active sacubitriL-valsar pierce (Entresto) 97-103 mg tablet Take 1 tablet by mouth 2 (two) times a day 180 tablet 025 2024 Discontinued spironolactone (ALDACTONE) 25 mg tablet TAKE 1 TABLET (25 MG TOTAL) BY MOUTH DAILY. 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 12/05/2022 01/20/2025 Dyslipidemia 04/03/2019 06/22/2022 Encounters Date Type Department Care Team Description 04/18/2025 11:15 AM CDT Office Visit [facility] [address] [place] [address] Sky Ahn MD LBBB (left bundle branch block) (Primary Dx); Nonischemic cardiomyopathy (HCC) from Last 3 Months Surgical History Surgery Date Site/Laterality Comments CARDIAC CATHETERIZATION 04/08/2019 No CAD, but calcification in prox LAD CHOLECYSTECTOMY 07/24/2008 - 07/23/2009 Medical History Medical History Date Comments Cardiomyopathy Hyperlipidemia Hypertension Sepsis due to methicillin resistant Staphylococc us aureus (MRSA) (HCC) 2008 Depression 08/12 Family History Medical History Relation Name Comments Depression Brother Aydin No Known Problems Father No Known Problems Father's Brother No Known Problems Father's Sister No Known Problems Maternal Grandfather No Known Problems Maternal Grandmother Depression Mother Elsa No Known Problems Mother's Brother No Known Problems Mother's Sister No Known Problems Other No Known Problems Paternal Grandfather No Known Problems Paternal Grandmother No Known Problems Sister Anemia Neg Hx Arrhythmia Neg Hx Asthma Neg Hx Clotting disorder Neg Hx Fainting Neg Hx Heart attack Neg Hx Heart disease Neg Hx Heart failure Neg Hx Hyperlipidemia Neg Hx Hypertension Neg Hx Hypertrophic cardiomyopathy Neg Hx Stroke Neg Hx Sudden Cardiac Neg Hx Relation Name Status Comments Brother Aydin Father Father's Brother Father's Sister Maternal Grandfather Maternal Grandmother Mother Elsa Mother's Brother Mother's Sister Other Paternal Grandfather Paternal Grandmother Sister Social History Tobacco Use Types Packs/Day Years Used Date Smoking Tobacco: Former Smokeless Tobacco: Never Tobacco Cessation:Counseling Given: Not Answered Alcohol Use Standard Drinks/Week Comments Not Currently 0 (1 standard drink = 0.6 oz pur e alcohol) Sex and Gender Information Value Date Recorded Sex Assigned at Not on file Legal Sex Male 2:41 PM CDT Gender Identity Male 08/13/2020 9:33 AM SUGAR COATING HAND Sexual Orientation Not on file Obstetrics History Last Filed Vital Signs Vital Sign Reading Time Taken Comments Blood Pressure 128/62 04/18/2025 11:06 AM CDT Pulse 44 04/18/2025 11:06 AM CDT Temperature 36.3 C (97.3 F) 10/12/2020 9:15 AM CDT Respiratory Rate - - Oxygen Saturation 99% 04/18/2025 11: 06 AM CDT Inhaled Oxygen Concentration - - Weight 93.3 kg (205 lb 11.2 oz) 025 11:06 AM CDT Height 172.7 cm (5' 8) 04/18/2025 11:0 6 AM CDT Body Mass Index 31.28 04/18/2025 11:06 AM CDT Plan of Treatment Health Maintenance Due Date Last Done Comments Depression Screening 1945 Fall Risk Assessment 1945 Hepatitis C Screening 1945 Hepatitis B Screening 1965 Abdominal Aortic Aneurysm (A AA) Screen 2012 Well Visit 65+ 2012 DTaP/Tdap/Td Vaccine (2 - Td or Tdap) 06/08/2020 06/08/2010, 12/08/1999 Zoster Vaccine (2 of 3) 01/17/2022 11/22/2021, 08/22 Influenza Vaccine (#1) 2025 , 05/06/2021, 04/01/2019, Additional history exists Pneumococcal vaccine 65+ Completed 08/01/2014, 08/2012 Procedures Procedure Name Priority Date/Time Associated Diagnosis Comments ELECTROCARDIOGRAM REPORT Routine 025 5:08 PM CDT LBBB (left bundle branch block) from Last 3 Months Results * Electrocardiogram Report (04/18/2025 5:08 PM CDT) us Sky Ahn MD ECG ORDERABLES Final Re sult from Last 3 Mon[place] [address] [id number] MED[id number] MEDICARE [facility] Care Teams Snout Puller Relationship Specialty Start Date End Date Luda Galvan, ASSEMBLER INSTALLER GENERAL [address] [place] [address] PCP - General Family Medicine 11/21/24
--- OUTSIDE RECORDS SUMMARY | 2025-04-23 14:02 | XMS_ITS | Encounter Summary ---
Author Organization [facility] Address [address] [place] [address] Care Team Providers Care Pathology Laboratory Technologist Name Role Phone Chente Mata MD Primary Care Provider Kp Summers MD Unavailable [phone] Sky Ahn MD Unavailable [phone] Luda Galvan NP Primary Care Provider [phone] Encounter Details Date Type Department Care Team (Late st Contact Info) Description 01/26/2024 [place] [facility] Message Enc [facility] Orthopedic & Sports Medicine - [place] [address] [facility], [facility] Provider Reschedule Social History Tobacco Use Types Packs/Day Years Used Date Smoking Tobacco: Former Cigarettes Smokeless Tobacco: Never Comments:not smoked since 19 72 Alcohol Use Standard Drinks/Week Comments Never 0 (1 standard drink = 0.6 oz pur e alcohol) PHQ-2 Answer Date Recorded Patient Health Questionnaire-2 Score 0 05/08/2023 Sex and Gender Information Value Date Recorded Sex Assigned at Male 09/23/2024 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 Sex Male 7:15 AM CDT Gender Identity Not on file Sexual Orientation Not on file documented as of this encounter Plan of Treatment Not on file documented as of this encounter Visit Diagnoses Not on filedocumented in this encounter Care Teams Pathology Laboratory Technologist Relationship Specialty Start Date End Date Chente Mata MD [address] [place] [address] PCP - General EMERGENCY MEDICINE 05/08/23 09/22/24 Luda Galvan, NEW ACCOUNTS CLERK [address] [place] [address] PCP - General Nurse Practitioner Family 09/23/24 Kp Summers MD [address] [place], [place] [id number] CARDIOVASCULAR DISEASE 03/11/24 4 Sky Ahn MD [address] [facility] [address] [place], [place] [id number] CARDIOVASCULAR DISEASE 03/12/24 documented as of this encounter
--- OUTSIDE RECORDS SUMMARY | 2025-04-23 14:02 | XMS_ITS | Encounter Summary ---
Author Organization [facility] Address [address] [place] [address] Care Team Providers Care Online Editor Name Role Phone Sky Ahn MD Unavailable [phone] Luda Galvan NP Primary Care Provider [phone] Encounter Details Date Type Department Care Team (Late st Contact Info) Description 11/20/2024 [facility] Message Enc [facility] Call Center [address] [place] [phone] [place], 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 Answer Date of Assessment Author Status No 10/15/2024 3:00 PM Colleen Ham RN Active * Do you have serious difficulty walking or climbing stairs? Answer Date of Assessment Author Status No 10/15/2024 3:00 PM Colleen Ham RN Active * Do you have difficulty dressing or bathing? Answer Date of Assessment Author Status No 10/15/2024 3:00 PM Colleen Ham RN Active * Because of a physical, mental, or emotional condition, do you have difficulty doing errands alone such as visiting a doctor's office or shopping? Answer Date of Assessment Author Status No 10/15/2024 3:00 PM Colleen Ham RN Active documented as of this encounter Mental Status * Because of a physical, mental, or emotional condition, do you have serious difficulty concentrating, remembering, or making decisions? Answer Entry Date Author Status No 10/15/2024 3:00 PM Colleen Ham RN Active documented in this encounter Plan of Treatment Not on file documented as of this encounter Visit Diagnoses Not on filedocumented in this encounter Care Teams Online Editor Relationship Specialty Start Date End Date Luda Galvan NP [address] [place] [address] PCP - General Nurse Practitioner Family 09/23/24 Sky Ahn MD [address] [facility] [address] [place] [address] CARDIOVASCULAR DISEASE 03/12/24 documented as of this encounter
--- OUTSIDE RECORDS SUMMARY | 2025-04-23 14:02 | XMS_ITS | Encounter Summary ---
Author Organization [facility] Address [address] [place] [address] Care Team Providers Care Ferry Engineer Name Role Phone Chente Mata MD Primary Care Provider [phone] Sky Ahn MD Unavailable [phone] Luda Galvan NP Primary Care Provider [phone] Encounter Details Date Type Department Care Team (Late st Contact Info) Description 09/18/2024 [employer] Message Enc [facility] Orthopedic & Sports Medicine - [place] [address] [place], [place] [phone] Rene Andrade MD [address] [place], [place] [phone] [place] Social History Tobacco Use Types Packs/Day Years [...] Sex Assigned at Male 09/23/2024 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
[2025-04-23 14:19] LABS: Estimated Glomerular Filt Rate 59
== END 2025-04-23 13:55 | disposition home or self-care (01) ==
PROVIDERS: PCP Nurse Practitioner Family; Visit Provider Nurse Practitioner Family
DX: K40.20 Bilateral inguinal hernia, without obstruction or gangrene, not specified as recurrent (principal)
CPT/HCPCS: 74177; Q9967